=== PATIENT | male | born 1995 | race Caucasian/White ===

== ENCOUNTER 2016-09-03 17:27 | Emergency (ER) | payer OTHER ==
--- NOTE | 2016-09-03 17:29 | PDOC ---
History of Present Illness - General History Source: Patient Exam Limitations: No Limitations - History of Present Illness Initial Comments: 09/03/16 17:52 The patient is a 21 year old male with no significant past medical history who presents to the Emergency Department with multiple episodes of vomiting and diarrhea since last night. The patient reports his last episode of vomiting and diarrhea was this morning. He reports associated RLQ pain, nausea, headache, dizziness, and weakness. He also reports subjective fever and chills last night. He rates the RLQ pain a 4/10, and a 7/10 on palpation. He denies any sick contacts. He denies URI symptoms. He denies chest pain, SOB, urinary complaints. <Majo Boykin - Last Filed: 09/03/16 17:52> - General History Source: Patient Exam Limitations: No Limitations <Araceli Rios - Last Filed: 09/05/16 09:55> - General Chief Complaint: Pain, Acute Stated Complaint: VOMITING,RLQ PAIN Time Seen by Provider: 09/03/16 17:29 Past History <Majo Boykin - Last Filed: 09/03/16 17:52> - Immunization History Td Vaccination: Yes Immunization Up to Date: Yes - Psycho/Social/Smoking Cessation Hx Anxiety: No Suicidal Ideation: No Smoking Status: No Smoking History: Never smoked Have you smoked in the past 12 months: No Number of Cigarettes Smoked Daily: 0 Hx Alcohol Use: No Drug/Substance Use Hx: No Substance Use Type: None <Araceli Rios - Last Filed: 09/05/16 09:55> - Past Medical History Allergies/Adverse Reactions: Allergies Allergy/AdvReac Type Severity Reaction Status Date / Time No Known Allergies Allergy Verified 09/03/16 17:30 Home Medications: Ambulatory Orders Cetirizine HCl [Zyrtec (Nf) -] 10 mg PO DAILY 06/02/13 Review of Systems - Review of Systems Able to Perform ROS?: Yes Comments:: 09/03/16 17:52 GENERAL/CONSTITUTIONAL: + fever, chills, weakness. No: loss of appetite. HEAD, EYES, EARS, NOSE AND THROAT: No: change in vision, ear pain, discharge, sore throat, throat swelling. CARDIOVASCULAR: No: chest pain, lightheadedness, palpitations, syncope RESPIRATORY: No: cough, shortness of breath, wheezing, hemoptysis, stridor. GASTROINTESTINAL: + RLQ pain, nausea, vomiting, diarrhea No: diarrhea, rectal bleeding, constipation. GENITOURINARY: No: dysuria, hematuria, frequency, urgency, flank pain. MUSCULOSKELETAL: No: back pain, neck pain, joint pain, muscle swelling or pain SKIN AND BREASTS: No: lesions, pallor, rash or easy bruising. NEUROLOGIC: + headache, dizziness. No: paresthesias ENDOCRINE: No: unexplained weight gain or loss HEMATOLOGIC/LYMPHATIC: No: anemia, easy bleeding, swelling nodes <Majo Boykin - Last Filed: 09/03/16 17:52> *Physical Exam - Vital Signs Last Vital Signs Temp Pulse Resp BP Pulse Ox 99 F 105 H 18 108/59 100 09/03/16 17:30 09/03/16 17:30 09/03/16 17:30 09/03/16 17:30 09/03/16 17:30 - Physical Exam Comments: 09/03/16 17:53 GENERAL: The patient is in no acute distress. HEAD: Normal with no signs of trauma. EYES: PERRLA, EOMI, sclera anicteric, conjunctiva clear. ENT: Ears normal, nares patent, oropharynx clear without exudates. Moist mucous membranes. NECK: Normal range of motion, supple without lymphadenopathy, JVD, or masses. LUNGS: Breath sounds equal, clear to auscultation bilaterally. No wheezes, and no crackles. HEART:Regular rate and rhythm, normal S1 and S2 without murmur, rub or gallop. ABDOMEN: + RLQ tenderness, + rebound, no involuntary guarding. Soft, normoactive bowel sounds. EXTREMITIES: Normal range of motion, no edema. No clubbing or cyanosis. No erythema, or tenderness. NEUROLOGICAL: Cranial nerves II through XII grossly intact. Normal speech. No focal neurological deficits. MUSCULOSKELETAL: Back non-tender to palpation, no CVA tenderness SKIN: Warm, Dry, normal turgor, no rashes or lesions noted. <Majo Boykin - Last Filed: 09/03/16 17:52> ED Treatment Course - LABORATORY CBC & Chemistry Diagram: 09/03/16 17:55 09/03/16 17:55 <Araceli Rios - Last Filed: 09/05/16 09:55> Medical Decision Making - Medical Decision Making 09/03/16 17:29 A portion of this note was documented by scribe services under my direction. I have reviewed the details of the note, within reason, and agree with the documentation with the following case summary and management plan written by me. Nursing documentation reviewed and incorporated into medical decision making 09/03/16 17:46 THis is a generally healthy 21 yo M, who presents to the ER with a complaint of RLQ pain, nausea, vomiting, diarrhea Pt awoke last night with complaints of multiple episodes of vomiting This was followed by diarrhea Pt noted RLQ abdominal pain, which he rates as 4/10 when his abdomen is not palpated Patient first noted that he awoke feeling bloated, the vomited and then developed abdominal pain No fevers, but his mother thought he felt warm No recent travel No ill contacts Ate [employer] (Which he thought was "[employer]") yesterday afternoon and had home cooked food for dinner No one else at home is ill Was seen by a physician today who sent him to the ER to rule out Appendicitis based on RLQ tenderness Pt states currently he feels weak and dizzy DD: Gastroenteritis, Terminal Ileitis, Ascending Colitis, Appendicitis, SBO Will do basic labs, UA Will do CT abd and pelvis Will give Zofran, NS bolus and Tylenol IV (low grade temp) Will re assess 09/03/16 18:34 Laboratory Tests 09/03/16 17:55 WBC 7.5 Hgb 15.3 Hct 45.9 Plt Count 201 Neutrophils % 88.[address] pending Pt signed out to Dr Johns <Araceli Rios - Last Filed: 09/05/16 09:55> *DC/Admit/Observation/Transfer - Attestations Scribe Attestion: 09/03/16 17:53 Documentation prepared by Majo Boykin, acting as biomedical engineering director for Araceli Rios MD. <Majo Boykin - Last Filed: 09/03/16 17:52> <Araceli Rios - Last Filed: 09/05/16 09:55> Diagnosis at time of Disposition: Abdominal pain, Gastroenteritis - Discharge Dispostion Disposition: HOME Condition at time of disposition: Improved - Patient Instructions Additional Instructions: PLENTY OF FLUIDS (WATER/GATORADE) BLAND DIET, ADVANCE TOLERATED EAT FREQUENT, SMALL MEALS THROUGHOUT THE DAY RETURN IF FEVER, VOMITING, SEVERE PAIN
[2016-09-03 17:36] VITALS: BP 108/59; PULSE 105; TEMP 99; BMI 24.4
[2016-09-03] MEDS ORDERED: ONDANSETRON 4 MG/2 ML VIAL IVPB ONE (17:45)
[2016-09-03] MEDS ORDERED: ACETAMINOPHEN 1000 MG/100 ML VIAL (NON FORMULARY) IVPB ONE (17:45)
[2016-09-03] MEDS ORDERED: SODIUM CHLORIDE 1,000 ML IV STA ×2 (17:45→18:34)
[2016-09-03 18:06] LABS: BASOPHIL 1.5 % (0-2.0); EOSINOPHIL 0.6 % (0-4.5); MCH 28.5 pg (25.7-33.7); MCHC 33.2 g/dl (32.0-35.9); MEAN CELL VOLUME 85.6 fl (80-96); MEAN PLT VOLUME 8.2 fl (7.5-11.1); NEUTROPHILS 88.3 % (42.8-82.8); PLATELET COUNT 201 K/MM3 (134-434); RDW 12.2 % (11.9-15.9); WHITE BLOOD COUNT 7.5 K/mm3 (4.0-10.0)
[2016-09-03] MEDS ORDERED: ONDANSETRON 4 MG/2 ML VIAL ONE (18:07)
[2016-09-03] MEDS ORDERED: ACETAMINOPHEN INJECTION 100 ML IVPB ONE (18:07)
[2016-09-03 18:20] LABS: ALBUMIN 4.2 g/dl (3.5-5.0); ALK PHOS 55 U/L (32-92); ANION GAP 5 (8-16); BILIRUBIN,TOTAL 0.7 mg/dl (0.2-1.0); CALCIUM 8.1 mg/dl (8.4-10.2); CO2 26 mmol/L (22-28); CREATININE 1.2 mg/dl (0.6-1.3); GLUCOSE,RANDOM 109 mg/dl (74-106); SGOT/AST 23 U/L (10-42); SGPT/ALT 17 U/L (10-40)
[2016-09-03 19:19] LABS: URINE APPEARANCE Clear; URINE BILIRUBIN Negative (NEGATIVE); URINE BLOOD Negative (NEGATIVE); URINE COLOR YELLOW; URINE GLUCOSE (UA) Negative (NEGATIVE); URINE KETONE Negative (NEGATIVE); URINE LEUK ESTERASE Negative (NEGATIVE); URINE NITRITE Negative (NEGATIVE); URINE PROTEIN Negative (NEGATIVE); URINE UROBILINOGEN 0.2 E.U/dl (0.2-1.0)
--- NOTE | 2016-09-03 20:35 | PDOC ---
*Physical Exam - Vital Signs Last Vital Signs Temp Pulse Resp BP Pulse Ox 99 F 105 H 18 108/59 100 09/03/16 17:30 09/03/16 17:30 09/03/16 17:30 09/03/16 17:30 09/03/16 17:30 - Physical Exam General Appearance: Yes: Nourished, Appropriately Dressed. No: Apparent Distress HEENT: positive: Normal ENT Inspection Gastrointestinal/Abdominal: positive: Normal Bowel Sounds, Tender (MILD TENDERNESS RLQ W/ NO G/R) Integumentary: positive: Normal Color ED Treatment Course - LABORATORY CBC & Chemistry Diagram: 09/03/16 17:55 09/03/16 17:55 - ADDITIONAL ORDERS Additional order review: Laboratory Results 09/03/16 09/03/16 19:10 17:55 Sodium 135 L Potassium 4.0 Chloride 104 Carbon Dioxide 26 Anion Gap 5 L BUN 16 Creatinine 1.2 Creat Clearance w eGFR > 60 Random Glucose 109 H Calcium 8.1 L Total Bilirubin 0.7 AST 23 ALT 17 Alkaline Phosphatase 55 Total Protein 7.0 Albumin 4.2 Urine Color Yellow Urine Appearance Clear Urine pH 7.0 Ur Specific Graham 1.010 Urine Protein Negative Urine Glucose (UA) Negative Urine Ketones Negative Urine Blood Negative Urine Nitrite Negative Urine Bilirubin Negative Urine Urobilinogen 0.2 e.u/dl Ur Leukocyte Esterase Negative 09/03/16 17:55 RBC 5.36 MCV 85.6 MCHC 33.2 RDW 12.2 MPV 8.2 Neutrophils % 88.3 H Lymphocytes % 5.4 L Monocytes % 4.2 Eosinophils % 0.6 Basophils % 1.5 - Medications Given in the ED: ED Medications Discontinued Medications Generic Name Dose Route Start Last Admin Trade Name Dinesh PRN Reason Stop Dose Admin Acetaminophen 1,000 mg 09/03/16 17:45 09/03/16 18:14 Ofirmev Injection - IVPB 09/03/16 17:46 1,000 mg ONCE ONE Administration Sodium Chloride 1,000 mls @ 1,000 mls/hr 09/03/16 17:45 09/03/16 18:14 Normal Saline - IV 09/03/16 18:44 1,000 mls/hr ASDIR STA Administration Ondansetron HCl 4 mg 09/03/16 17:45 09/03/16 18:14 Zofran Injection IVPB 09/03/16 17:46 4 mg ONCE ONE Administration Progress Note - Progress Note Progress Note: NORMAL CT D/C HOME *DC/Admit/Observation/Transfer Diagnosis at time of Disposition: Gastroenteritis Abdominal pain Qualifiers: Abdominal location: right lower quadrant Qualified Code(s): R10.31 - Right lower quadrant pain - Discharge Dispostion Disposition: HOME Condition at time of disposition: Improved - Patient Instructions Additional Instructions: PLENTY OF FLUIDS (WATER/GATORADE) BLAND DIET, ADVANCE TOLERATED EAT FREQUENT, SMALL MEALS THROUGHOUT THE DAY RETURN IF FEVER, VOMITING, SEVERE PAIN
== END 2016-09-03 20:44 | disposition home or self-care (01) ==
LOC: FER 17:27
PROC: 3E033NZ Introduction of Analgesics, Hypnotics, Sedatives into Peripheral Vein, Percutaneous Approach (ICD-10-PCS; principal; 2016-09-03)
PROC: 3E033GC Introduction of Other Therapeutic Substance into Peripheral Vein, Percutaneous Approach (ICD-10-PCS; 2016-09-03)
PROC: 3E0337Z Introduction of Electrolytic and Water Balance Substance into Peripheral Vein, Percutaneous Approach (ICD-10-PCS; 2016-09-03)
DX: K52.9 Noninfective gastroenteritis and colitis, unspecified (principal); R10.31 Right lower quadrant pain
CPT/HCPCS: 36415; 74177-TC; 80053; 81003; 85025; 87086; 96361; 96374; 96375; 99283-25

== ENCOUNTER 2016-09-17 21:46 | Emergency (ER) | payer OTHER ==
[2016-09-17 21:55] VITALS: BP 138/86; PULSE 106; TEMP 98.6; BMI 23.7
--- NOTE | 2016-09-17 22:03 | PDOC ---
[id number] is a 21 year old male with no past medical hx who presents to the ED for evaluation of a laceration to his left eyebrow. The patient states he was at the gym this evening bench pressing weights. He reports he went to rerack the bar onto the juan when the knob that holds the bar fell onto his left eyebrow. The patient reports he has been bleeding from the laceration and came right to the ED. The patient has no further complaints at this time. 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 He sustained a laceration. There was bleeding, which has resolved. He denies injury to the eye, blurred or double vision, headache, visual or focal neurologic symptoms, unsteadiness of gait Review of systems: As above. Otherwise all systems reviewed and found to be negative Past medical history: Healthy male, no significant medical or surgical problems past or present, no medications Social history: Fully active, denies the use of tobacco alcohol or nonprescription drugs Family history: Reviewed and noncontributory Physical exam: Alert and oriented 3, well-developed well-nourished, no acute distress, cheerful and cooperative Afebrile, vital signs normal Head completely atraumatic except for 1 cm laceration just lateral to the left eye. The laceration is superficial, involves skin only, and there is no bleeding at present. There is no swelling, ecchymosis, or hematoma Febrile illness 4 mm, round, reactive to light and accommodation. There is no conjunctival injection. The cornea is clear. EOMs are full without diplopia. There is no V2 numbness. ENT is clear Neck is supple without bruit mass or nodes. There is no tenderness over the vertebral bodies or musculature, and full range of motion without pain Chest is clear, no rib cage or chest wall tenderness or deformity CV regular without murmur rub or gallop Abdomen benign Neurological C2 to 12 intact. Strength full and symmetric. No focal sensory or motor deficits. Gait stable and unimpaired Impression: Superficial laceration facial, no significant head injury, no eye injury Plan: Repair of laceration and follow-up as needed. <Finn Abbott - Last Filed: 09/19/16 08:18> - General Chief Complaint: Injury Stated Complaint: LACERATION NEAR LEFT EYE Time Seen by Provider: 09/17/16 22:02 Past History <Selene Martin - Last Filed: 09/17/16 22:07> - Past Medical History Other medical history: DENIES - Immunization History Td Vaccination: Yes Immunization Up to Date: Yes - Psycho/Social/Smoking Cessation Hx Anxiety: No Suicidal Ideation: No Smoking Status: No Smoking History: Never smoked Have you smoked in the past 12 months: No Number of Cigarettes Smoked Daily: 0 Information on smoking cessation initiated: No Hx Alcohol Use: No Drug/Substance Use Hx: No Substance Use Type: None <Finn Abbott - Last Filed: 09/19/16 08:18> - Past Medical History Allergies/Adverse Reactions: Allergies Allergy/AdvReac Type Severity Reaction Status Date / Time No Known Allergies Allergy Verified 09/17/16 21:48 Home Medications: Ambulatory Orders Cetirizine HCl [Zyrtec (Nf) -] 10 mg PO DAILY 06/02/13 Review of Systems - Review of Systems Able to Perform ROS?: Yes Comments:: 09/17/16 22:04 CONSTITUTIONAL: Absent: fever, no chills, no fatigue EYES: Absent: visual changes ENT: Absent: ear pain, no sore throat CARDIOVASCULAR: Absent: chest pain, no palpitations RESPIRATORY: Absent: cough, no SOB GI: Absent: abdominal pain, no nausea, no vomiting, no constipation, no diarrhea GENITOURINARY: Absent: dysuria, no frequency, no hematuria MUSCULOSKELETAL: Absent: back pain, no arthralgia, no myalgia SKIN: +Laceration to the left eyebrow. Absent: rash <Selene Martin - Last Filed: 09/17/16 22:07> *Physical Exam - Vital Signs Last Vital Signs Temp Pulse Resp BP Pulse Ox 98.6 F 106 H 16 138/86 98 09/17/16 21:50 09/17/16 21:50 09/17/16 21:50 09/17/16 21:50 09/17/16 21:50 - Physical Exam Comments: 09/17/16 22:07 GENERAL: Well-appearing, well-nourished. No apparent distress. HEENT: Normocephalic, atraumatic. PERRL, EOM intact. CARDIOVASCULAR: Normal S1, S2. Regular rate and rhythm. PULMONARY: Clear to auscultation bilaterally. ABDOMEN: Soft, non-distended, non-tender. EXTREMITIES: Normal ROM in all four extremities. No gross deformities. SKIN: +Laceration to the left eyebrow. Warm, dry. No rash NEUROLOGICAL: No focal neurological deficits. <Selene Martin - Last Filed: 09/17/16 22:07> - Vital Signs Last Vital Signs Temp Pulse Resp BP Pulse Ox 98.6 F 106 H 16 138/86 98 09/17/16 21:50 09/17/16 21:50 09/17/16 21:50 09/17/16 21:50 09/17/16 21:50 <Finn Abbott - Last Filed: 09/19/16 08:18> Medical Decision Making - Medical Decision Making 09/19/16 08:16 Procedure note: Repair of laceration 1 cm laceration just lateral to the left eye in the soft tissues. It involves only skin. No deep structures involved. No damage to the eye or eyelids. Wound scrubbed and irrigated with normal saline. Wound edges approximated well with skin adhesive. Wound care instructions. Follow-up as needed. Patient fully ambulatory and in no pain or other distress upon discharge with his family. <Finn Abbott - Last Filed: 09/19/16 08:18> *DC/Admit/Observation/Transfer - Attestations Scribe Attestion: 09/17/16 22:04 Documentation prepared by Selene Martin, acting as biomedical manager for Finn Servin MD/. <Selene Martin - Last Filed: 09/17/16 22:07> - Discharge Dispostion Admit: No <Finn Abbott - Last Filed: 09/19/16 08:18> Diagnosis at time of Disposition: Laceration of face Qualifiers: Encounter type: initial encounter Qualified Code(s): S01.81XA - Laceration without foreign body of other part of head, initial encounter - Discharge Dispostion Disposition: HOME Condition at time of disposition: Stable - Referrals Referrals: Flores Salas MD [Primary Care Provider] - - Patient Instructions Printed Discharge Instructions: DI for Laceration Repair With Dermabond
== END 2016-09-17 22:06 | disposition home or self-care (01) ==
LOC: FER 21:46
DX: S01.81XA Laceration without foreign body of other part of head, initial encounter (principal); W20.8XXA Other cause of strike by thrown, projected or falling object, initial encounter; Y93.B3 Activity, free weights; Y92.39 Other specified sports and athletic area as the place of occurrence of the external cause
CPT/HCPCS: 99281-25

== ENCOUNTER 2016-12-18 16:11 | Emergency (ER) | payer OTHER ==
--- NOTE | 2016-12-18 16:14 | PDOC ---
History of Present Illness <Kaylyn Gregg - Last Filed: 12/18/16 17:11> - General History Source: Patient Exam Limitations: No Limitations - History of Present Illness Initial Comments: 12/18/16 17:08 The patient is a 21 year old male, with no significant past medical history, who presents to the emergency department with a right inguinal abscess for approximately 3 months. The patient reports when he first noticed the abscess, he thought it was an ingrown hair. He reports he began to pick at it about 1 month ago due to discomfort. Upon putting pressure on it, he reports he is able to drain yellow fluid with blood. Though the patient is able to drain the abscess, he states it grow back. He reports his pain is exacerbated when putting pressure to the area, and rates his pain as a 6/10. The patient denies any fever or chills. He denies any dysuria, hematuria, frequency, or urgency. He denies any recent travel or sick contacts. Allergies: None reported. Past Surgical History: None reported. Social History: Non-smoker. Denies alcohol or drug use. PCP: Dr. Salas <Diana Ramos - Last Filed: 12/18/16 17:25> - General Chief Complaint: Wound Stated Complaint: RLQ BOIL Time Seen by Provider: 12/18/16 16:14 Past History - Past Medical History Other medical history: pt denies - Immunization History Td Vaccination: Yes Immunization Up to Date: Yes - Psycho/Social/Smoking Cessation Hx Anxiety: No Suicidal Ideation: No Smoking Status: No Smoking History: Never smoked Have you smoked in the past 12 months: No Number of Cigarettes Smoked Daily: 0 Hx Alcohol Use: No Drug/Substance Use Hx: No Substance Use Type: None <Kaylyn Gregg - Last Filed: 12/18/16 17:11> <Diana Ramos - Last Filed: 12/18/16 17:25> - Past Medical History Allergies/Adverse Reactions: Allergies Allergy/AdvReac Type Severity Reaction Status Date / Time No Known Allergies Allergy Verified 12/18/16 16:12 Home Medications: Ambulatory Orders Cetirizine HCl [Zyrtec (Nf) -] 10 mg PO DAILY 06/02/13 Review of Systems - Review of Systems Able to Perform ROS?: Yes Comments:: 12/18/16 17:08 GENERAL/CONSTITUTIONAL: No fever or chills. No weakness. HEAD, EYES, EARS, NOSE AND THROAT: No change in vision. No ear pain or discharge. No sore throat. CARDIOVASCULAR: No chest pain or shortness of breath. RESPIRATORY: No cough, wheezing, or hemoptysis. GASTROINTESTINAL: No nausea, vomiting, diarrhea or constipation. GENITOURINARY: No dysuria, frequency, or change in urination. MUSCULOSKELETAL: No joint or muscle swelling or pain. No neck or back pain. SKIN: Yes:+Right inguinal abscess. NEUROLOGIC: No headache, vertigo, loss of consciousness, or change in strength/ sensation. ENDOCRINE: No increased thirst. No abnormal weight change. HEMATOLOGIC/LYMPHATIC: No anemia, easy bleeding, or history of blood clots. ALLERGIC/IMMUNOLOGIC: No hives or skin allergy. <Diana Ramos - Last Filed: 12/18/16 17:25> *Physical Exam - Physical Exam Comments: GENERAL: Awake, alert, and fully oriented, in no acute distress HEAD: No signs of trauma ABDOMEN: Soft, nontender, normoactive bowel sounds. No guarding, no rebound. No masses EXTREMITIES: Normal range of motion, no edema. No clubbing or cyanosis. No cords, erythema, or tenderness NEUROLOGICAL: Cranial nerves II through XII grossly intact. Normal speech, normal gait SKIN: Warm, Dry, normal turgor. +Small fluctuant nodule to the RLQ, right at the waistband. <Kaylyn Gregg - Last Filed: 12/18/16 17:11> - Vital Signs Last Vital Signs Temp Pulse Resp BP Pulse Ox 98.6 F 67 18 105/42 98 12/18/16 16:12 12/18/16 16:12 12/18/16 16:12 12/18/16 16:12 12/18/16 16:12 <Diana Ramos - Last Filed: 12/18/16 17:25> Procedures - Incision and Drainage I&D Site: Right: Abdomen (RLQ) Betadine cleansed: Yes Anesthesia: 1% Lidocaine Volume(ml): 1 Blade Size: 11 Attempts: 1 Complications: none Dressing: Yes Progress: 12/18/16 17:12 Slight purulent drainage. Packing was not placed, as the wound was very small. + Sterile gauze. <Kaylyn Gregg - Last Filed: 12/18/16 17:11> Medical Decision Making - Medical Decision Making 12/18/16 17:13 Counseled patient that he would benefit from follow-up with either a surgeon or his occupational medicine officer, as there appears to be a chronic component. <Kaylyn Gregg - Last Filed: 12/18/16 17:11> *DC/Admit/Observation/Transfer - Discharge Dispostion Admit: No <Kaylyn Gregg - Last Filed: 12/18/16 17:11> - Attestations Scribe Attestion: 12/18/16 17:09 Documentation prepared by Diana Ramos, acting as medical assisting instructor for Kaylyn Gregg MD. <Diana Ramos - Last Filed: 12/18/16 17:25> Diagnosis at time of Disposition: Abscess - Discharge Dispostion Disposition: HOME Condition at time of disposition: Stable - Referrals Referrals: Vivek Moffett MD [Staff Physician] - - Patient Instructions Printed Discharge Instructions: DI for Incision and Drainage of a Skin Abscess , DI for Skin Abscess Additional Instructions: WARM SALT WATER SOAKS TWICE PER DAY. DRESS WITH STERILE GAUZE AND TAPE. RETURN IF SEVERE PAIN, WORSENING SWELLING, REDNESS AROUND THE WOUND, OR ANY OTHER CONCERNS.
[2016-12-18 16:31] VITALS: BP 105/42; PULSE 67; TEMP 98.6; BMI 23.0
== END 2016-12-18 17:38 | disposition home or self-care (01) ==
LOC: FER 16:11
PROC: 0J980ZZ Drainage of Abdomen Subcutaneous Tissue and Fascia, Open Approach (ICD-10-PCS; principal; 2016-12-18)
DX: L02.214 Cutaneous abscess of groin (principal)
CPT/HCPCS: 10060; 99282-25

== ENCOUNTER 2017-06-21 18:52 | Emergency (ER) | payer OTHER ==
--- NOTE | 2017-06-21 19:12 | PDOC ---
History of Present Illness - General Chief Complaint: Pain, Acute Stated Complaint: right hand pain Time Seen by Provider: 06/21/17 19:09 History Source: Patient Exam Limitations: No Limitations - History of Present Illness Initial Comments: 06/21/17 19:12 This is a 22-year-old male who comes in complaining of right hand pain. Patient said that he was working out at the gym 3 days ago and went to lift some heavy bar bells when he felt a pop in the dorsum of his wrist area. Patient said he had immediate pain and swelling of the wrist and now it is difficult for him to lift anything. Patient said that he has no decrease in range of motion of his wrist or fingers. Patient denies any decrease in sensation of his fingers. Patient is otherwise healthy. Patient denies any prior injury to the wrist or hand PAST MEDICAL HISTORY: no significant history PAST SURGICAL HISTORY: no significant history FAMILY HISTORY: no pertinant history SOCIAL HISTORY: Pt lives with family and is employed. MEDICATIONS: reviewed ALLERGIES: As per nursing notes Review of Systems General: No fevers or chills, no weakness, no weight loss HEENT: No change in vision. No sore throat,. No ear pain CardioVascular: No chest pain or shortness of breath Respiratory:No cough, or wheezing. Gastrointestinal: no nausea, vomitting, diarrhea or constipation, No rectal bleeding Genitourinary: No dysuria, hematuria, or frequency Musculoskeletal: Right wrist pain as per history of present illness Neurologic: No headache, vertigo, dizziness or loss of consciousness Psychiatric: nor depression Skin: No rashes or easy bruising Endocrine: no increased thirst or abnormal weight change Allergic: no skin or latex allergy All other systems reviewed and normal GENERAL: The patient is awake, alert, and fully oriented, in no acute distress. HEAD: Normal with no signs of trauma. EYES: Pupils equal, round and reactive to light, extraocular movements intact, sclera anicteric, conjunctiva clear. EXTREMITIES: Right wrist there is some mild swelling over the dorsum of the wrist with no ecchymosis. There is some mild tenderness on palpation of the soft tissue. There is no bony tenderness on palpation of the wrist bones or hand bones. There is full range of motion of the fingers without discomfort or difficulty. Neurovascular is intact NEUROLOGICAL: Normal speech, normal gait. PSYCH: Normal mood, normal affect. SKIN: Warm, Dry, normal turgor, no rashes or lesions noted. Assessment and plan: This is a 22-year-old male who was lifting weights 3 days ago and felt a pop in the dorsum of his wrist. Patient most likely injured the retinaculum or possibly strained one of the tendons of the dorsum of the hand. Patient was given a splint, told to take anti-inflammatories and follow-up with the orthopedist. Patient was given referral to orthopedics Past History - Past Medical History Allergies/Adverse Reactions: Allergies Allergy/AdvReac Type Severity Reaction Status Date / Time No Known Allergies Allergy Verified 06/21/17 18:52 Home Medications: Ambulatory Orders NK [No Known Home Medication] 06/21/17 COPD: No Other medical history: denies - Immunization History Td Vaccination: Yes Immunization Up to Date: Yes - Suicide/Smoking/Psychosocial Hx Smoking Status: No Smoking History: Never smoked Have you smoked in the past 12 months: No Number of Cigarettes Smoked Daily: 0 Hx Alcohol Use: No Drug/Substance Use Hx: No Substance Use Type: None *Physical Exam - Vital Signs Last Vital Signs Temp Pulse Resp BP Pulse Ox 99.5 F 87 18 135/57 100 06/21/17 18:52 06/21/17 18:52 06/21/17 18:52 06/21/17 18:52 06/21/17 18:52 *DC/Admit/Observation/Transfer Diagnosis at time of Disposition: Sprain of wrist, right Qualifiers: Encounter type: initial encounter Qualified Code(s): S63.501A - Unspecified sprain of right wrist, initial encounter - Discharge Dispostion Disposition: HOME Condition at time of disposition: Stable Admit: No - Referrals - Patient Instructions Additional Instructions: Wear the wrist splint while awake. You can take it off to take a shower or at night when sleeping. Call the orthopedist Friday at [phone] for an appointment with the hand specialist of the group. Take an anti-inflammatory ibuprofen 2 tablets 3 times a day with food until you see the orthopedist. Return to the emergency department immediately with ANY new, persistent or worsening symptoms. Continue any medications as previously prescribed by your physician. You should follow up with your primary doctor as soon as possible regarding today's emergency department visit. . Please make sure your doctor reviews the results of your emergency evaluation. Thank you for coming to the Emergency Department today for your care. It was a pleasure to see you today. Please note that your evaluation is INCOMPLETE until you follow-up with your doctor. - Post Discharge Activity
[2017-06-21 19:16] VITALS: BP 135/57; PULSE 87; TEMP 99.5; BMI 26.4
== END 2017-06-21 19:21 | disposition home or self-care (01) ==
LOC: FER 18:52
PROC: 2W3CX1Z Immobilization of Right Lower Arm using Splint (ICD-10-PCS; principal; 2017-06-21)
DX: S63.501A Unspecified sprain of right wrist, initial encounter (principal); X58.XXXA Exposure to other specified factors, initial encounter; Y93.89 Activity, other specified; Y92.39 Other specified sports and athletic area as the place of occurrence of the external cause
CPT/HCPCS: 99282-25

== ENCOUNTER 2018-10-07 21:17 | Emergency (ER) | payer OTHER ==
[2018-10-07 21:23] VITALS: BP 124/71; PULSE 75; TEMP 97.9; BMI 24.4
--- NOTE | 2018-10-07 21:27 | PDOC ---
History of Present Illness - General History Source: Patient Exam Limitations: No Limitations - History of Present Illness Initial Comments: 10/07/18 22:11 The patient is a 23 year old male, presenting with family, with no significant past medical history, who presents to the ED complaining of abdominal pain and diarrhea onset today. He reports that he awoke with these symptoms but was able to go about his day. He notes that he took Nexium this morning with minimal to no relief of his symptoms. He reports that he had 3 episodes of diarrhea today. Non-bloody in nature. He describes his abdominal pain as a pressure sensation, ranging from mild to moderate, without radiation or modifying factors. He notes that his pain is localized throughout. He notes that he has barely had any food or fluid intake because he did not want to make the abdominal pain worse. He did drink a green tea that did make his abdominal pain worse. The patient denies chest pain, shortness of breath, headache and dizziness. Denies fever, chills, nausea, vomiting or constipation. Allergies: Nausea Past surgical history: None reported Social History: No alcohol, tobacco or drug use reported <Tony Green - Last Filed: 10/07/18 22:16> <Laila Lopez - Last Filed: 10/08/18 01:07> - General Chief Complaint: Pain Stated Complaint: ABD PAIN/N/V Time Seen by Provider: 10/07/18 21:27 Past History <Tony Green - Last Filed: 10/07/18 22:16> - Past Medical History COPD: No - Immunization History Td Vaccination: Yes Immunization Up to Date: Yes - Suicide/Smoking/Psychosocial Hx Smoking Status: No Smoking History: Unknown if ever smoked Have you smoked in the past 12 months: No Number of Cigarettes Smoked Daily: 0 Information on smoking cessation initiated: No Hx Alcohol Use: No Drug/Substance Use Hx: No Substance Use Type: None <Laila Lopez - Last Filed: 10/08/18 01:07> - Past Medical History Allergies/Adverse Reactions: Allergies Allergy/AdvReac Type Severity Reaction Status Date / Time No Known Allergies Allergy Verified 08/04/18 02:42 Home Medications: Ambulatory Orders Esomeprazole Magnesium [Nexium 24Hr] 20 mg PO DAILY #20 tablet. 10/07/18 Hyoscyamine Odt [Levsin Odt -] 0.125 mg SL TID PRN #10 tab.rapdis 10/07/18 Review of Systems - Review of Systems Able to Perform ROS?: Yes Comments:: 10/07/18 22:12 GENERAL/CONSTITUTIONAL: No fever or chills. No weakness. HEAD, EYES, EARS, NOSE AND THROAT: No change in vision. No ear pain or discharge. No sore throat. GASTROINTESTINAL: (+) Abdominal pain, diarrhea. No nausea, vomiting, constipation. GENITOURINARY: No dysuria, frequency, or change in urination. CARDIOVASCULAR: No chest pain or shortness of breath. RESPIRATORY: No cough, wheezing, or hemoptysis. MUSCULOSKELETAL: No joint or muscle swelling or pain. No neck or back pain. SKIN: No rash NEUROLOGIC: No headache, vertigo, loss of consciousness, or change in strength/ sensation. ENDOCRINE: No increased thirst. No abnormal weight change. HEMATOLOGIC/LYMPHATIC: No anemia, easy bleeding, or history of blood clots. ALLERGIC/IMMUNOLOGIC: No hives or skin allergy. <Tony Green - Last Filed: 10/07/18 22:16> *Physical Exam - Vital Signs Last Vital Signs Temp Pulse Resp BP Pulse Ox 97.9 F 75 14 124/71 100 10/07/18 21:21 10/07/18 21:21 10/07/18 21:21 10/07/18 21:21 10/07/18 21:21 - Physical Exam Comments: 10/07/18 22:12 Constitutional: Awake, alert, oriented. No acute distress. Head: Normocephalic. Atraumatic Eyes: PERRL. EOMI. Conjunctivae are not pale. ENT: (+) Mucous membranes are dry. Posterior pharynx without exudates or erythema. Uvula midline. Neck: Supple. Full ROM. No lymphadenopathy. Cardiovascular: Regular rate. Regular rhythm. S1, S2 regular. Distal pulses are 2+ and symmetric. Pulmonary/Chest: No evidence of respiratory distress. Clear to auscultation bilaterally No wheezing, rales or rhonchi. Abdominal: (+) Mild left lower quadrant tenderness without masses, involuntary guarding or rebound. Soft and non-distended. No organomegaly. No palpable masses. Good bowel sounds. Skin: Skin is warm and dry. No petechiae. No purpura. Neurological: Alert and oriented to person, place, and time. Cranial nerves II -XII are grossly intact. Normal speech. Strength is grossly symmetric. No sensory deficits. <Tony Green - Last Filed: 10/07/18 22:16> - Vital Signs Last Vital Signs Temp Pulse Resp BP Pulse Ox 97.9 F 75 14 124/71 100 10/07/18 21:21 10/07/18 21:21 10/07/18 21:21 10/07/18 21:21 10/07/18 21:21 <Laila Lopez - Last Filed: 10/08/18 01:07> Moderate Sedation - Procedure Monitoring Vital Signs: Procedure Monitoring Vital Signs Temperature 97.9 F 10/07/18 21:21 Pulse Rate 75 10/07/18 21:21 Respiratory Rate 14 10/07/18 21:21 Blood Pressure 124/71 10/07/18 21:21 O2 Sat by Pulse Oximetry (%) 100 10/07/18 21:21 <Tony Green - Last Filed: 10/07/18 22:16> - Procedure Monitoring Vital Signs: Procedure Monitoring Vital Signs Temperature 97.9 F 10/07/18 21:21 Pulse Rate 75 10/07/18 21:21 Respiratory Rate 14 10/07/18 21:21 Blood Pressure 124/71 10/07/18 21:21 O2 Sat by Pulse Oximetry (%) 100 10/07/18 21:21 <Laila Lopez - Last Filed: 10/08/18 01:07> ED Treatment Course - LABORATORY CBC & Chemistry Diagram: 10/07/18 22:14 10/07/18 22:14 <Laila Lopez - Last Filed: 10/08/18 01:07> Progress Note - Progress Note Progress Note: Documentation has been prepared under my direction and personally reviewed by me in its entirety. I attest that this documented accurately reflects all work, treatment, procedures and medical decision making performed by me. <Laila Lopez - Last Filed: 10/08/18 01:07> Medical Decision Making - Medical Decision Making As noted above, this 23-year-old man presents with a one-day history of abdominal discomfort and diarrhea. No vomiting/fever or other symptoms noted. There has been no recent travel or known sick contacts. Patient admits to eating very spicy food a few days ago, there is been no other significant dietary indiscretion recently. Exam as noted. Patient appears to be mildly dehydrated clinically; he has mild left lower quadrant abdominal tenderness but no evidence of peritoneal irritation. Differential diagnosis includes gastroenteritis/diverticulitis/IBS CBC/chemistry profile/amylase sent Normal saline IV hydration (1 L) given along with 40 mg Protonix IV and Levsin ODT 0.125 mg sublingually. After IV fluids and medications, patient feels significantly better. Laboratory evaluation is essentially normal. Clinical presentation most consistent with gastroenteritis (diarrheal) with possible underlying IBS/GERD. Although the patient denies that he has ever been told that he had either of those diagnoses, review of the medical record reveals that he has frequent gastrointestinal complaints. Prescriptions for Nexium 20 mg daily as well as Levsin ODT 0.125 mg to be used as needed for abdominal cramping sent to pharmacy. Patient should follow-up with his PMD, in the near future and return to the ER if he has more severe pain or develops fever/vomiting <Laila Lopez - Last Filed: 10/08/18 01:07> *DC/Admit/Observation/Transfer - Attestations Scribe Attestion: 10/07/18 22:12 Documentation prepared by Tony Green, acting as medical esthetician for Laila Lopez MD <Tony Green - Last Filed: 10/07/18 22:16> <Laila Lopez - Last Filed: 10/08/18 01:07> Diagnosis at time of Disposition: Gastroenteritis - Discharge Dispostion Disposition: HOME Condition at time of disposition: Stable - Prescriptions Prescriptions: Esomeprazole Magnesium [Nexium 24Hr] 20 mg PO DAILY #20 tablet. Hyoscyamine Odt [Levsin Odt -] 0.125 mg SL TID PRN #10 tab.rapdis PRN Reason: Pain - Referrals Referrals: Flores Salas MD [Staff Physician] - - Patient Instructions Printed Discharge Instructions: Diarrhea Additional Instructions: Light diet; avoid high fat or spicy foods Pepto-Bismol/Imodium/Kaopectate as needed for loose stools Nexium 20 mg daily Levsin ODT 0.125 mg up to 3 times a day as needed for abdominal cramping Return to ER if you have severe abdominal pain/fever/vomiting Follow-up with within the next 5 days
[2018-10-07] MEDS ORDERED: SODIUM CHLORIDE 1,000 ML IV STA (22:05)
[2018-10-07] MEDS ORDERED: HYOSCYAMINE SULFATE 0.125 MG *ODT PO ONE (22:06)
[2018-10-07] MEDS ORDERED: PANTOPRAZOLE SODIUM 40 MG VIAL IVPB ONE (22:06)
[2018-10-07] MEDS ORDERED: HYOSCYAMINE SULFATE 0.125 MG *ODT ONE (22:15)
[2018-10-07] MEDS ORDERED: PANTOPRAZOLE SODIUM 40 MG VIAL ONE (22:15)
[2018-10-07 22:29] LABS: BASO % 0.5 % (0-2.0); EOS % 2.2 % (0-4.5); HEMATOCRIT 45.4 % (35.4-49); HEMOGLOBIN 15.3 GM/dl (11.7-16.9); MCH 29.6 pg (25.7-33.7); MCHC 33.7 g/dl (32.0-35.9); MEAN CELL VOLUME 87.7 fl (80-96); MEAN PLT VOLUME 8.4 fl (7.5-11.1); MONO % 7.4 % (3.8-10.2); NEUT % 68.9 % (42.8-82.8); PLATELET COUNT 234 K/MM3 (134-434); RBC 5.18 M/mm3 (4.00-5.60); RDW 11.6 % (11.9-15.9); WHITE BLOOD COUNT 6.5 K/mm3 (4.0-10.8)
[2018-10-07 22:43] LABS: ALBUMIN 4.1 g/dl (3.4-5.0); ALK PHOS 65 U/L (45-117); ANION GAP 7 MMOL/L (8-16); BILIRUBIN,TOTAL 0.5 mg/dl (0.2-1); BLOOD UREA NITROGEN 15 mg/dl (7-18); CHLORIDE 104 mmol/L (98-107); CO2 26 mmol/L (21-32); GLUCOSE,RANDOM 93 mg/dl (74-106); SGOT/AST 30 U/L (15-37); SGPT/ALT 51 U/L (13-61); SODIUM 137 mmol/L (136-145); TOT PROT 7.3 g/dl (6.4-8.2)
== END 2018-10-07 23:09 | disposition home or self-care (01) ==
LOC: FER 21:17
PROC: 3E033GC Introduction of Other Therapeutic Substance into Peripheral Vein, Percutaneous Approach (ICD-10-PCS; principal; 2018-10-07)
PROC: 3E0337Z Introduction of Electrolytic and Water Balance Substance into Peripheral Vein, Percutaneous Approach (ICD-10-PCS; 2018-10-07)
DX: K52.9 Noninfective gastroenteritis and colitis, unspecified (principal)
CPT/HCPCS: 36415; 80053; 82150; 85025; 96361; 96374; 99283-25; J7030

== ENCOUNTER 2018-11-13 15:30 | Emergency (ER) | payer OTHER ==
[2018-11-13 15:37] VITALS: BP 117/63; PULSE 69; TEMP 98.4; BMI 24.4
--- NOTE | 2018-11-13 15:56 | PDOC ---
History of Present Illness - General History Source: Patient Exam Limitations: No Limitations - History of Present Illness Initial Comments: 11/13/18 16:05 The patient is a 23 year old male, with a significant past medical history of right thumb surgery as a child, who presents to the emergency department with right thumb pain for about 1.5 weeks. He denies any trauma. He reports pain when doing dumbbell presses in the gym and when applying pressure with a pen or pencil while writing. He denies numbness or tingling. He states he noticed some discoloration to the thumb with his workout now which resolved by the time he stopped. He denies any other complaints. Allergies: NKDA <Lizbet Jenkins - Last Filed: 11/13/18 16:05> <Socorro Rubio - Last Filed: 11/13/18 16:32> - General Chief Complaint: Pain, Acute Stated Complaint: RIGHT THUMB PAIN Time Seen by Provider: 11/13/18 15:56 Past History <Lizbet Jenkins - Last Filed: 11/13/18 16:05> - Past Medical History COPD: No Other medical history: DENIES - Immunization History Td Vaccination: Yes Immunization Up to Date: Yes - Suicide/Smoking/Psychosocial Hx Smoking Status: No Smoking History: Never smoked Have you smoked in the past 12 months: No Number of Cigarettes Smoked Daily: 0 Hx Alcohol Use: No Drug/Substance Use Hx: No Substance Use Type: None <Socorro Rubio - Last Filed: 11/13/18 16:32> - Past Medical History Allergies/Adverse Reactions: Allergies Allergy/AdvReac Type Severity Reaction Status Date / Time No Known Allergies Allergy Verified 11/13/18 15:37 Home Medications: Ambulatory Orders NK [No Known Home Medication] 11/13/18 Review of Systems - Review of Systems Able to Perform ROS?: Yes Comments:: 11/13/18 16:07 GENERAL/CONSTITUTIONAL: No fever or chills. No weakness. HEAD, EYES, EARS, NOSE AND THROAT: No change in vision. No ear pain or discharge. No sore throat. CARDIOVASCULAR: No chest pain or shortness of breath. RESPIRATORY: No cough, wheezing, or hemoptysis. GASTROINTESTINAL: No nausea, vomiting, diarrhea or constipation. GENITOURINARY: No dysuria, frequency, or change in urination. MUSCULOSKELETAL: (+) right thumb pain. No muscle swelling or pain. No neck or back pain. SKIN: No rash NEUROLOGIC: No headache, vertigo, loss of consciousness, or change in strength/ sensation. ENDOCRINE: No increased thirst. No abnormal weight change. HEMATOLOGIC/LYMPHATIC: No anemia, easy bleeding, or history of blood clots. ALLERGIC/IMMUNOLOGIC: No hives or skin allergy. <Lizbet Jenkins - Last Filed: 11/13/18 16:05> *Physical Exam - Vital Signs Last Vital Signs Temp Pulse Resp BP Pulse Ox 98.4 F 69 16 117/63 100 11/13/18 15:31 11/13/18 15:31 11/13/18 15:31 11/13/18 15:31 11/13/18 15:31 - Physical Exam Comments: 11/13/18 16:08 RIGHT HAND: full ROM at wrist. No tenderness. able to oppose thumb against resistance at MCP. Able to flex and extend against resistance at dip and pip joints. no bony deformities. Normal skin color. neurovascularly intact. sensation intact. <Lizbet Jenkins - Last Filed: 11/13/18 16:05> - Vital Signs Last Vital Signs Temp Pulse Resp BP Pulse Ox 98.4 F 69 16 117/63 100 11/13/18 15:31 11/13/18 15:31 11/13/18 15:31 11/13/18 15:31 11/13/18 15:31 <Socorro Rubio - Last Filed: 11/13/18 16:32> Medical Decision Making - Medical Decision Making 11/13/18 16:27 Pt presents to the ED complaining of atraumatic R thumb pain. Denies other injuries. Intact function. Possible strain. Will discharge with instructions to follow up with hand surgeon if symptoms persist. <Socorro Rubio - Last Filed: 11/13/18 16:32> *DC/Admit/Observation/Transfer - Attestations Scribe Attestion: 11/13/18 16:09 Documentation prepared by Lizbet Jenkins, acting as medical science liaison for Socorro Rubio MD, <Lizbet Jenkins - Last Filed: 11/13/18 16:05> - Discharge Dispostion Decision to Admit order: No <Socorro Rubio - Last Filed: 11/13/18 16:32> Diagnosis at time of Disposition: Strain of thumb, right - Discharge Dispostion Disposition: HOME Condition at time of disposition: Good - Referrals Referrals: Eliseo Carey MD [Staff Physician] - - Patient Instructions Printed Discharge Instructions: DI for Finger Sprain Additional Instructions: you came to the ED for pain in your thumb with gripping pencils and lifting weights. This is most likely because you have sprained the ligaments in your thumb. you should not lift weights, do push ups, or do anything that would put stress on your thumb for at least two weeks. Follow up with hand surgery for symptoms that last longer than two weeks. Return to the ED for severe pain and swelling, blue or extremely swollen thumb, other new or worsening symptoms.
== END 2018-11-13 16:20 | disposition home or self-care (01) ==
LOC: FER 15:30
DX: S66.211A Strain of extensor muscle, fascia and tendon of right thumb at wrist and hand level, initial encounter (principal); X58.XXXA Exposure to other specified factors, initial encounter; Y93.43 Activity, gymnastics; Y92.39 Other specified sports and athletic area as the place of occurrence of the external cause
CPT/HCPCS: 99281-25

== ENCOUNTER 2019-01-22 21:14 | Emergency (ER) | payer OTHER | END 2019-01-22 21:52 | disposition home or self-care (01) | LOC: FER 21:14 ==

== ENCOUNTER 2019-10-16 22:16 | Emergency (ER) | payer OTHER ==
[2019-10-16 22:24] VITALS: BP 131/79; PULSE 88; TEMP 98.1; BMI 26.6
--- NOTE | 2019-10-16 22:46 | PDOC ---
History of Present Illness - General Chief Complaint: Choking Sensation Stated Complaint: FREQUENT BURPING Time Seen by Provider: 10/16/19 22:46 - History of Present Illness Initial Comments: This 24-year-old man, otherwise healthy presents with few week history of midsternal burning type pain with regurgitation after eating. The patient states that he had been taking [id number] Nexium for several weeks because of indigestion; states that his parents both have GERD and he is aware of symptoms. He has no previous history of gastrointestinal issues. He denies any recent change in his diet. He states that the OTC Nexium had been controlling symptoms until last few days when the substernal postprandial discomfort became more severe. He has no shortness of breath, palpitations or cough. He denies epigastric pain, nausea/vomiting/diarrhea. No daily medications other than OTC Nexium No known allergies Non-smoker; denies daily alcohol/other recreational drugs Past History - Past Medical History Allergies/Adverse Reactions: Allergies Allergy/AdvReac Type Severity Reaction Status Date / Time No Known Allergies Allergy Verified 11/13/18 15:37 Home Medications: Ambulatory Orders Esomeprazole Magnesium [Nexium 24Hr] 20 mg PO DAILY 10/16/19 Pantoprazole Sodium [Protonix -] 20 mg PO BID #30 tablet.ec 10/16/19 COPD: No GI Disorders: Yes - Immunization History Td Vaccination: Yes Immunization Up to Date: Yes - Psycho Social/Smoking Cessation Hx Smoking Status: No Smoking History: Never smoked Have you smoked in the past 12 months: No Number of Cigarettes Smoked Daily: 0 Hx Alcohol Use: No Drug/Substance Use Hx: No Substance Use Type: None Review of Systems - Review of Systems Able to Perform ROS?: Yes Comments:: 12 point review of systems is negative except for what is noted in the history of present illness *Physical Exam - Vital Signs Last Vital Signs Temp Pulse Resp BP Pulse Ox 98.1 F 88 16 131/79 100 10/16/19 22:19 10/16/19 22:19 10/16/19 22:19 10/16/19 22:19 10/16/19 22:19 - Physical Exam GENERAL: Adult male, alert and oriented x3 in no acute distress HEAD: Normal with no signs of trauma. EYES: PERRLA, EOMI, sclera anicteric, conjunctiva clear. ENT: Ears normal, nares patent, oropharynx clear without exudates. Moist mucous membranes. NECK: Normal range of motion, supple without lymphadenopathy, JVD, or masses. LUNGS: Breath sounds equal, clear to auscultation bilaterally. No wheezes, and no crackles. HEART:Regular rate and rhythm, normal S1 and S2 without murmur, rub or gallop. ABDOMEN:.normal bowel sounds No guarding,tenderness or rebound.No masses No distention. EXTREMITIES: Normal range of motion, no edema. No clubbing or cyanosis. No erythema, or tenderness. NEUROLOGICAL: Cranial nerves II through XII grossly intact. Normal speech. No focal neurological deficits. MUSCULOSKELETAL: Back non-tender to palpation, no CVA tenderness SKIN: Warm, Dry, normal turgor, no rashes or lesions noted. ED Progress Note - Progress Note Progress Note: As noted above, this 24-year-old man without previous significant medical history, presents with symptoms consistent with reflux esophagitis/GERD. Although the patient has been taking esomeprazole (OTC), symptoms are progressing. Exam, as noted, is normal without abdominal tenderness Patient's father accompanied him to the ER. According to father, patient frequently eats dinner late at night, just prior to going to sleep. He also drinks large quantities of Pepsi-Cola. Reflux triggering foods, beverages and behavior discussed with the patient. Patient will stop taking OTC esomeprazole and begin pantoprazole 20 mg twice a day. Discharge instructions will include listing of reflux triggering foods and beverages which he should avoid. He states that he keeps the head of his bed up and he should continue this. He should plan on following up with family physician, and return here if he has severe pain, vomiting or fever Discharge - Discharge Information Problems reviewed: Yes Clinical Impression/Diagnosis: GERD with esophagitis Condition: Stable Disposition: HOME - Additional Discharge Information Prescriptions: Pantoprazole Sodium [Protonix -] 20 mg PO BID #30 tablet.ec - Follow up/Referral Referrals: Flores Salas MD [Primary Care Provider] - 1 week - Patient Discharge Instructions Patient Printed Discharge Instructions: GERD Diet Additional Instructions: Protonix 20 mg twice a day Avoid foods and beverages that trigger reflux, as discussed Avoid eating large meals; avoid eating just prior to going to sleep Continue head elevation at night Can use antacids if you have breakthrough heartburn during the day Follow-up with within the next 5 to 7 days Return to ER if you have severe pain, persistent vomiting or develop fever - Post Discharge Activity
[2019-10-16] MEDS ORDERED: PANTOPRAZOLE 20 MG TABLET PO ONE (23:19)
[2019-10-16] MEDS ORDERED: FAMOTIDINE 20 MG TABLET ONE (23:25)
== END 2019-10-16 23:28 | disposition home or self-care (01) ==
LOC: FER 22:16
DX: K21.0 Gastro-esophageal reflux disease with esophagitis (principal)
CPT/HCPCS: 99282-25

== ENCOUNTER 2022-01-06 19:21 | Emergency (ER) | payer OTHER ==
[2022-01-06] MEDS ORDERED: FAMOTIDINE 20 MG/50 ML IVPB 20 MG/50 ML MG IVPB ONE ×2 (19:36→19:48)
[2022-01-06] MEDS ORDERED: HYOSCYAMINE SULFATE 0.125 MG *ODT PO ONE (19:38)
[2022-01-06] MEDS ORDERED: MAG HYDROX/AL HYDROX/SIMETH 30 ML UNIT-DOSE CUP PO ONE (19:38)
[2022-01-06] MEDS ORDERED: MAG HYDROX/AL HYDROX/SIMETH 30 ML UNIT-DOSE CUP ONE (19:48)
[2022-01-06 20:13] VITALS: BP 113/78; PULSE 66; TEMP 98.6; BMI 24.0
[2022-01-06 20:13] LABS: ALBUMIN 3.8 g/dl (3.4-5.0); BILIRUBIN,TOTAL 0.6 mg/dl (0.2-1); CALCIUM 8.9 mg/dl (8.5-10); CREATININE 1.2 mg/dl (0.55-1.3); HEMOGLOBIN 15.2 G/dL (11.7-16.9); MCH 29.2 pg (25.7-33.7); MCHC 34.5 g/dl (32.0-35.9); MEAN CELL VOLUME 84.4 fl (80-96); MEAN PLT VOLUME 7.6 fl (7.5-11.1); PLATELET COUNT 317.6 10^3/uL (134-434); RBC 5.21 10^6/uL (4.00-5.60); TOT PROT 7.3 g/dl (6.4-8.2); WHITE BLOOD COUNT 9.1 10^3/uL (4.0-10.8)
[2022-01-06 21:51] LABS: PLATELET ESTIMATE ADEQUATE
== END 2022-01-06 20:44 | disposition home or self-care (01) ==
LOC: FER 19:21
PROC: 3E033GC Introduction of Other Therapeutic Substance into Peripheral Vein, Percutaneous Approach (ICD-10-PCS; principal; 2022-01-06)
DX: R10.13 Epigastric pain (principal)
CPT/HCPCS: 36415; 80053; 83690; 85025; 96374; 99284-25

== ENCOUNTER 2022-01-09 22:18 | Emergency (ER) | payer OTHER ==
[2022-01-09] MEDS ORDERED: ACETAMINOPHEN 1000 MG/100 ML BAG IVPB ONE (22:31)
[2022-01-09] MEDS ORDERED: FAMOTIDINE 20 MG/50 ML IVPB 20 MG/50 ML MG IVPB ONE ×2 (22:31→22:50)
[2022-01-09] MEDS ORDERED: MAG HYDROX/AL HYDROX/SIMETH 30 ML UNIT-DOSE CUP PO ONE (22:31)
[2022-01-09] MEDS ORDERED: SODIUM CHLORIDE 1,000 ML IV STA (22:31)
[2022-01-09 22:34] VITALS: BP 129/81; TEMP 99.3; BMI 49.3
[2022-01-09] MEDS ORDERED: ACETAMINOPHEN INJECTION 100 ML IVPB ONE (22:50)
[2022-01-09] MEDS ORDERED: MAG HYDROX/AL HYDROX/SIMETH 30 ML UNIT-DOSE CUP ONE (22:50)
[2022-01-09 22:55] LABS: HEMATOCRIT 41.8 % (35.4-49); HEMOGLOBIN 14.5 G/dL (11.7-16.9); MCH 28.8 pg (25.7-33.7); MCHC 34.7 g/dl (32.0-35.9); MEAN PLT VOLUME 7.5 fl (7.5-11.1); PLATELET COUNT 280.2 10^3/uL (134-434); RBC 5.04 10^6/uL (4.00-5.60); RDW 14.3 % (11.9-15.9); WHITE BLOOD COUNT 9.8 10^3/uL (4.0-10.8)
[2022-01-09 23:13] LABS: ALBUMIN 3.4 g/dl (3.4-5.0); BILIRUBIN,TOTAL 0.6 mg/dl (0.2-1); CALCIUM 8.6 mg/dl (8.5-10); CREATININE 1.1 mg/dl (0.55-1.3); TOT PROT 6.9 g/dl (6.4-8.2)
[2022-01-09 23:18] LABS: PLATELET ESTIMATE ADEQUATE
[2022-01-10 00:17] VITALS: PULSE 83
== END 2022-01-10 00:21 | disposition home or self-care (01) ==
LOC: FER 22:18
PROC: 3E033GC Introduction of Other Therapeutic Substance into Peripheral Vein, Percutaneous Approach (ICD-10-PCS; principal; 2022-01-09)
DX: K52.9 Noninfective gastroenteritis and colitis, unspecified (principal)
CPT/HCPCS: 36415; 74176-TC; 80053; 85027; 99285-25

== ENCOUNTER 2022-01-13 22:49 | Emergency (ER) | payer OTHER ==
[2022-01-13 22:57] VITALS: BP 121/79; PULSE 106; TEMP 100; BMI 23.7
== END 2022-01-13 23:10 | disposition home or self-care (01) ==
LOC: FER 22:49
DX: K52.9 Noninfective gastroenteritis and colitis, unspecified (principal)
CPT/HCPCS: 99281-25

== ENCOUNTER 2022-01-23 22:53 | Inpatient (IN) | payer OTHER ==
[2022-01-23 23:09] VITALS: BMI 22.4
[2022-01-23] MEDS ORDERED: ACETAMINOPHEN 1000 MG/100 ML BAG IVPB ONE (23:38)
[2022-01-23] MEDS ORDERED: LACTATED RINGERS SOLUTION 1,000 ML/1,000 ML INFUS.BAG IV STA (23:38)
[2022-01-23] MEDS ORDERED: ACETAMINOPHEN INJECTION 100 ML IVPB ONE (23:40)
[2022-01-24 00:12] LABS: BASO % 0.3 % (0-2.0); EOS % 12.9 % (0-4.5); HEMATOCRIT 36.4 % (35.4-49); HEMOGLOBIN 12.2 GM/dL (11.7-16.9); LYMPH % 22.6 % (8-40); MCH 27.4 pg (25.7-33.7); MCHC 33.4 g/dl (32.0-35.9); MEAN CELL VOLUME 82.1 fl (80-96); NEUT % 52.2 % (42.8-82.8); PLATELET COUNT 398 10^3/uL (134-434); RBC 4.43 M/mm3 (4.00-5.60); RDW 13.3 % (11.9-15.9); WHITE BLOOD COUNT 10.6 K/mm3 (4.0-10.0)
[2022-01-24 00:44] LABS: CALCIUM 8.1 mg/dL (8.5-10.1)
[2022-01-24 00:45] LABS: ALBUMIN 2.7 g/dl (3.4-5.0); BLOOD UREA NITROGEN 10.8 mg/dL (7-18)
[2022-01-24 00:49] LABS: BILIRUBIN,TOTAL 0.2 mg/dL (0.2-1)
[2022-01-24 00:51] LABS: TOT PROT 5.8 g/dl (6.4-8.2)
[2022-01-24] MEDS ORDERED: PIPERACILLIN/TAZOB 4.5 GM 4.5 GM in DEXTROSE 5%-WATER 100 ML IVPB ONE (01:44)
[2022-01-24] MEDS ORDERED: PIPERACILLIN/TAZOB 4.5 GM 4.5 GM/100 ML BAG IVPB ONE (02:36)
[2022-01-24 07:27] LABS: BASO % 0.3 % (0-2.0); EOS % 16.9 % (0-4.5); HEMATOCRIT 32.7 % (35.4-49); LYMPH % 26.2 % (8-40); MCH 27.8 pg (25.7-33.7); MCHC 33.7 g/dl (32.0-35.9); MEAN CELL VOLUME 82.5 fl (80-96); MEAN PLT VOLUME 7.7 fl (7.5-11.1); MONO % 11.3 % (3.8-10.2); NEUT % 45.3 % (42.8-82.8); PLATELET COUNT 362 10^3/uL (134-434); RBC 3.97 M/mm3 (4.00-5.60); RDW 13.1 % (11.9-15.9); WHITE BLOOD COUNT 8.3 K/mm3 (4.0-10.0)
[2022-01-24 08:03] LABS: CALCIUM 8.2 mg/dL (8.5-10.1)
[2022-01-24 08:04] LABS: BLOOD UREA NITROGEN 5.8 mg/dL (7-18); MAGNESIUM 1.8 mg/dL (1.8-2.4)
[2022-01-24 08:06] LABS: CREATININE 1.1 mg/dL (0.55-1.3)
[2022-01-24 08:07] LABS: ALBUMIN 2.3 g/dl (3.4-5.0); PHOSPHOROUS 3.8 mg/dL (2.5-4.9)
[2022-01-24 08:10] LABS: BILIRUBIN,TOTAL 1.1 mg/dL (0.2-1)
[2022-01-24] MEDS ORDERED: PIPERACILLIN/TAZOB 3.375 GM 3.375 GM in DEXTROSE 5%-WATER - 50 ML IVPB SCH (10:00)
[2022-01-24] MEDS ORDERED: PIPERACILLIN/TAZOB 3.375 GM 3.375 GM/50 ML BAG IVPB ONE (10:24)
[2022-01-24] MEDS: D5-1/2NS+20 MEQ KCL - 20 MEQ/1,000 ML INFUS.BAG IV SCH (10:35)
[2022-01-24] MEDS: AMPICILLIN NA/SULBACTAM NA 3 GM in SODIUM CHLORIDE 100 ML IVPB SCH (15:02)
[2022-01-25] MEDS: D5-1/2NS+20 MEQ KCL - 20 MEQ/1,000 ML INFUS.BAG IV SCH (00:26)
[2022-01-25] MEDS ORDERED: MELATONIN 5 MG TABLETS PO ONE (04:59)
[2022-01-25] MEDS: AMPICILLIN NA/SULBACTAM NA 3 GM in SODIUM CHLORIDE 100 ML IVPB SCH ×4 (06:14→17:13)
[2022-01-25 09:18] LABS: HEMATOCRIT 35.2 % (35.4-49); HEMOGLOBIN 11.7 GM/dL (11.7-16.9); MCH 27.4 pg (25.7-33.7); MCHC 33.3 g/dl (32.0-35.9); MEAN CELL VOLUME 82.3 fl (80-96); MEAN PLT VOLUME 7.2 fl (7.5-11.1); PLATELET COUNT 385 10^3/uL (134-434); RBC 4.28 M/mm3 (4.00-5.60); RDW 13.2 % (11.9-15.9)
[2022-01-25] MEDS ORDERED: SODIUM CHLORIDE 100 ML IVPB ONE ×2 (09:28→17:00)
[2022-01-25] MEDS ORDERED: AMPICILLIN NA/SULBACTAM NA 3 GM VIAL ONE ×2 (09:28→17:00)
[2022-01-25 10:01] LABS: CALCIUM 8.1 mg/dL (8.5-10.1)
[2022-01-25 10:02] LABS: ALBUMIN 2.2 g/dl (3.4-5.0)
[2022-01-25 10:04] LABS: CREATININE 0.8 mg/dL (0.55-1.3)
[2022-01-25 10:05] LABS: BLOOD UREA NITROGEN 3.8 mg/dL (7-18)
[2022-01-25 10:06] LABS: BILIRUBIN,TOTAL 0.4 mg/dL (0.2-1); TOT PROT 5.3 g/dl (6.4-8.2)
[2022-01-25] MEDS: PANTOPRAZOLE 40 MG TABLET PO SCH (13:22)
[2022-01-26] MEDS ORDERED: AMPICILLIN NA/SULBACTAM NA 3 GM VIAL ONE ×3 (01:50→17:43)
[2022-01-26] MEDS ORDERED: SODIUM CHLORIDE 100 ML IVPB ONE ×3 (01:50→17:43)
[2022-01-26] MEDS: AMPICILLIN NA/SULBACTAM NA 3 GM in SODIUM CHLORIDE 100 ML IVPB SCH ×3 (02:22→18:57)
[2022-01-26] MEDS: ACETAMINOPHEN 325 MG TABLET (FP) PO PRN (02:38)
[2022-01-26] MEDS: PANTOPRAZOLE 40 MG TABLET PO SCH (09:25)
[2022-01-26] MEDS ORDERED: BISMUTH SUBSALICYLATE 262 MG/15 ML BTL PO SCH (10:00)
[2022-01-26] MEDS ORDERED: DIPHENOXYLATE 2.5/ATROPINE.025 1 COMBO TABLET PO PRN (12:08)
[2022-01-26] MEDS ORDERED: ACETAMINOPHEN 325 MG TABLET (FP) PO PRN (12:18)
[2022-01-26] MEDS ORDERED: oxyCODONE HCL 5 MG TABLET PO PRN (12:18)
[2022-01-26] MEDS: DEXTROSE 5%-LACTATED RINGERS 1,000 ML IV SCH (12:55)
[2022-01-27] MEDS ORDERED: SODIUM CHLORIDE 100 ML IVPB ONE ×3 (02:06→17:08)
[2022-01-27] MEDS ORDERED: AMPICILLIN NA/SULBACTAM NA 3 GM VIAL ONE ×3 (02:06→17:08)
[2022-01-27] MEDS: AMPICILLIN NA/SULBACTAM NA 3 GM in SODIUM CHLORIDE 100 ML IVPB SCH ×3 (02:29→17:11)
[2022-01-27 09:38] LABS: HEMATOCRIT 31.6 % (35.4-49); HEMOGLOBIN 10.8 GM/dL (11.7-16.9); MCHC 34.2 g/dl (32.0-35.9); MEAN CELL VOLUME 81.9 fl (80-96); PLATELET COUNT 370 10^3/uL (134-434); RBC 3.87 M/mm3 (4.00-5.60); RDW 13.2 % (11.9-15.9); WHITE BLOOD COUNT 8.8 K/mm3 (4.0-10.0)
[2022-01-27] MEDS: ACETAMINOPHEN 325 MG TABLET (FP) PO PRN ×2 (09:48→20:30)
[2022-01-27] MEDS: PANTOPRAZOLE 40 MG TABLET PO SCH (09:48)
[2022-01-27 10:07] LABS: BLOOD UREA NITROGEN 5.4 mg/dL (7-18); CALCIUM 7.6 mg/dL (8.5-10.1)
[2022-01-27 10:10] LABS: CREATININE 0.9 mg/dL (0.55-1.3)
[2022-01-27 10:12] LABS: BILIRUBIN,TOTAL 0.2 mg/dL (0.2-1); TOT PROT 4.8 g/dl (6.4-8.2)
[2022-01-27] MEDS ORDERED: ONDANSETRON 4 MG/2 ML VIAL IVPUSH ONE (14:30)
[2022-01-27] MEDS: DEXTROSE 5%-LACTATED RINGERS 1,000 ML IV SCH (14:35)
[2022-01-27] MEDS: ONDANSETRON 4 MG/2 ML VIAL IVPUSH SCH ×2 (18:02→22:14)
[2022-01-27] MEDS ORDERED: MELATONIN 5 MG TABLETS PO ONE (22:41)
[2022-01-28] MEDS ORDERED: AMPICILLIN NA/SULBACTAM NA 3 GM VIAL ONE ×2 (01:10→10:10)
[2022-01-28] MEDS ORDERED: SODIUM CHLORIDE 100 ML IVPB ONE ×2 (01:11→10:10)
[2022-01-28] MEDS: ONDANSETRON 4 MG/2 ML VIAL IVPUSH SCH (01:39)
[2022-01-28] MEDS: AMPICILLIN NA/SULBACTAM NA 3 GM in SODIUM CHLORIDE 100 ML IVPB SCH ×2 (01:39→10:15)
[2022-01-28] MEDS ORDERED: SODIUM PHOSPHATE/NA BIPHOS 133 ML ENEMA RC ONE (06:00)
[2022-01-28] MEDS: ONDANSETRON 4 MG/2 ML VIAL IVPUSH PRN ×2 (07:03→11:28)
[2022-01-28] MEDS: DEXTROSE 5%-LACTATED RINGERS 1,000 ML IV SCH (12:55)
[2022-01-28] MEDS ORDERED: methylPREDNISolone NA SUCC 125 MG/2 ML VIAL IVPB SCH ×2 (13:45→15:15)
[2022-01-28] MEDS ORDERED: DEXTROSE 5%-LACTATED RINGERS 1,000 ML IV SCH (14:02)
[2022-01-28] MEDS ORDERED: ONDANSETRON 4 MG/2 ML VIAL IVPUSH PRN (14:02)
[2022-01-28] MEDS: PANTOPRAZOLE 40 MG TABLET PO SCH (15:05)
[2022-01-29] MEDS: ACETAMINOPHEN 325 MG TABLET (FP) PO PRN ×2 (01:54→10:57)
[2022-01-29] MEDS: PANTOPRAZOLE 40 MG TABLET PO SCH (10:54)
[2022-01-29] MEDS: methylPREDNISolone NA SUCC 125 MG/2 ML VIAL IVPUSH SCH (10:55)
[2022-01-29] MEDS ORDERED: SIMETHICONE 80 MG TAB.CHEW (FP) PO PRN (20:28)
[2022-01-30] MEDS: ACETAMINOPHEN 325 MG TABLET (FP) PO PRN ×2 (06:14→10:27)
[2022-01-30] MEDS: PANTOPRAZOLE 40 MG TABLET PO SCH (10:27)
[2022-01-30] MEDS: methylPREDNISolone NA SUCC 125 MG/2 ML VIAL IVPUSH SCH (10:31)
[2022-01-30 15:57] VITALS: BP 124/66; PULSE 94; TEMP 97.6
== END 2022-01-30 16:13 | disposition home or self-care (01) | DRG 245 ==
LOC: JER 22:53 → JERBED 01-24 02:34 → J8W 01-24 18:55
PROVIDERS: ADMIT Hospitalist; ATTEND Internal Medicine
PROC: 0DBL8ZX Excision of Transverse Colon, Via Natural or Artificial Opening Endoscopic, Diagnostic (ICD-10-PCS; 2022-01-28)
PROC: 0DBN8ZX Excision of Sigmoid Colon, Via Natural or Artificial Opening Endoscopic, Diagnostic (ICD-10-PCS; 2022-01-28)
PROC: 0DBM8ZX Excision of Descending Colon, Via Natural or Artificial Opening Endoscopic, Diagnostic (ICD-10-PCS; principal; 2022-01-28 12:30)
DX: K51.00 Ulcerative (chronic) pancolitis without complications (principal); K62.5 Hemorrhage of anus and rectum; R63.4 Abnormal weight loss; Z68.22 Body mass index [BMI] 22.0-22.9, adult; R53.83 Other fatigue; R25.2 Cramp and spasm
CPT/HCPCS: 36415; 74177-TC; 80053; 83605; 83735; 83993; 84100; 85025; 85027; 86140; 87040; 87045; 87046; 87177; 87209; 87324; 87449; 87493; 88305-TC; 93005; 93010; 94760; 99284-25; 99285-25; C9803-CS; Q9967; U0003; U0005

== ENCOUNTER 2023-05-18 23:07 | Emergency (ER) | payer OTHER ==
[2023-05-18 23:12] VITALS: BP 137/86; PULSE 96; RESP 18; TEMP 99; BMI 25.4
== END 2023-05-19 00:13 | disposition home or self-care (01) ==
LOC: FER 23:07
DX: R21 Rash and other nonspecific skin eruption (principal); L29.9 Pruritus, unspecified; K12.32 Oral mucositis (ulcerative) due to other drugs
CPT/HCPCS: 87070; 87186; 87205; 99283-25

== ENCOUNTER 2023-06-28 18:50 | Emergency (ER) | payer OTHER ==
[2023-06-28 18:59] VITALS: BP 127/82; PULSE 96; RESP 19; TEMP 98.4; BMI 25.4
== END 2023-06-28 20:01 | disposition home or self-care (01) ==
LOC: FER 18:50
DX: L53.9 Erythematous condition, unspecified (principal); L03.211 Cellulitis of face
CPT/HCPCS: 99283-25

== ENCOUNTER 2023-07-01 15:19 | Emergency (ER) | payer OTHER ==
[2023-07-01 15:27] VITALS: BP 120/77; PULSE 94; RESP 20; TEMP 98.2; BMI 25.0
== END 2023-07-01 17:03 | disposition home or self-care (01) ==
LOC: JERFT 15:19
DX: L30.9 Dermatitis, unspecified (principal); H93.8X9 Other specified disorders of ear, unspecified ear
CPT/HCPCS: 99283-25

== ENCOUNTER 2023-07-15 17:25 | Emergency (ER) | payer OTHER ==
[2023-07-15 17:59] VITALS: BP 122/67; PULSE 105; RESP 16; TEMP 98.2; BMI 24.8
[2023-07-15] MEDS ORDERED: SODIUM CHLORIDE 0.9% 500 ML INFUS.BAG IV ONE (19:53)
[2023-07-15] MEDS ORDERED: FAMOTIDINE 20 MG/50 ML IVPB 20 MG/50 ML MG IVPB ONE ×2 (19:53→20:09)
[2023-07-15 20:21] LABS: BASO % 0.8 % (0-2.0); EOS % 0.7 % (0-4.5); HEMATOCRIT 46.1 % (35.4-49); HEMOGLOBIN 15.2 GM/dL (11.7-16.9); LYMPH % 26.8 % (8-40); MCH 28.1 pg (25.7-33.7); MCHC 32.9 g/dl (32.0-35.9); MEAN CELL VOLUME 85.4 fl (80-96); MONO % 7.7 % (3.8-10.2); PLATELET COUNT 301 10^3/uL (134-434); RDW 14.2 % (11.9-15.9); WHITE BLOOD COUNT 10.8 K/mm3 (4.0-10.0)
[2023-07-15 20:27] LABS: INR 1.16 (0.83-1.09); PROTHROMBIN TIME (PATIENT) 13.4 SEC (9.7-13.0)
[2023-07-15 20:28] LABS: CHLORIDE 105 mmol/L (98-107); POTASSIUM 3.9 mmol/L (3.5-5.1); SODIUM 140 mmol/L (136-145)
[2023-07-15 20:29] LABS: ACTIVATED PTT 26.1 SECONDS (25.2-36.5)
[2023-07-15 20:31] LABS: ANION GAP 5 mmol/L (4-13); CALCIUM 8.9 mg/dL (8.5-10.1); CO2 30 mmol/L (21-32); GLUCOSE,RANDOM 100 mg/dL (74-106); LIPASE 119 U/L (73-393)
[2023-07-15 20:32] LABS: ALBUMIN 3.9 g/dl (3.4-5.0)
[2023-07-15 20:34] LABS: CREATININE 1.1 mg/dL (0.55-1.3); SGOT/AST 13 U/L (15-37); SGPT/ALT 28 U/L (13-61)
[2023-07-15 20:36] LABS: BILIRUBIN,TOTAL 0.6 mg/dL (0.2-1)
[2023-07-15 20:37] LABS: ALK PHOS 48 U/L (45-117)
[2023-07-15] MEDS ORDERED: methylPREDNISolone NA SUCC 40 MG/1 ML VIAL IVPUSH ONE (22:31)
[2023-07-15] MEDS ORDERED: DEXTROSE 5%-LACTATED RINGERS 1,000 ML IV ONE (22:38)
[2023-07-15 23:21] LABS: URINE APPEARANCE CLEAR; URINE BILIRUBIN NEGATIVE (NEGATIVE); URINE COLOR YELLOW; URINE GLUCOSE (UA) NEGATIVE (NEGATIVE); URINE KETONE NEGATIVE (NEGATIVE)
[2023-07-15 23:22] LABS: URINE LEUK ESTERASE NEGATIVE (NEGATIVE); URINE NITRITE NEGATIVE (NEGATIVE); URINE PROTEIN NEGATIVE (NEGATIVE); URINE UROBILINOGEN 0.2 mg/dL (0.2-1.0)
[2023-07-15 23:42] LABS: ERYTHROCYTE SEDIMENTATION RATE 6 mm/hr (0-10)
[2023-07-15] MEDS ORDERED: methylPREDNISolone NA SUCC 40 MG/1 ML VIAL ONE (23:53)
== END 2023-07-16 00:11 | disposition home or self-care (01) ==
LOC: JER 17:25
PROC: 3E033GC Introduction of Other Therapeutic Substance into Peripheral Vein, Percutaneous Approach (ICD-10-PCS; principal; 2023-07-15)
PROC: 3E033GC Introduction of Other Therapeutic Substance into Peripheral Vein, Percutaneous Approach (ICD-10-PCS; 2023-07-15)
DX: R10.84 Generalized abdominal pain (principal)
CPT/HCPCS: 36415; 74177-TC; 80053; 81003; 83690; 85025; 85610; 85651; 85730; 86140; 87086; 99285-25; Q9967